=== PATIENT | male | born 1985 | race Hispanic/Latino ===

== ENCOUNTER 2018-03-24 14:21 | Outpatient (CLI) | payer OTHER ==
--- NOTE | 2018-03-24 15:08 | RAD ---
RIGHT WRIST THREE VIEWS: 03/24/2018 HISTORY: Injury. Trauma. Pain. COMPARISON: None. FINDINGS: There is an obliquely oriented, nondisplaced fracture of the distal radius, in the region of the base of the radial styloid, extending into the radial carpal joint. There is a transverse fracture at th e basis of the ulnar styloid as well. No evidence for dislocation. Soft tissue swelling noted. IMPRESSION: Fractures of the distal radius and ulnar styloid. The patient reports a history of falling one month ago, as well as reinjuring the wrist today. Thus, these fractures may represent nonhealed subacute fractures and/or acute fracture. POS: [facility]
== END 2018-03-24 14:22 | disposition home or self-care (01) ==
LOC: BICRAD 14:21
PROVIDERS: ATTEND Nurse Practitioner Family
DX: M25.431 Effusion, right wrist (principal); S52.611A Displaced fracture of right ulna styloid process, initial encounter for closed fracture; S52.514A Nondisplaced fracture of right radial styloid process, initial encounter for closed fracture